=== PATIENT | female | born 1995 | race Caucasian/White ===

== ENCOUNTER → 2023-08-13 | Outpatient (CLI) | payer OTHER, SELFPAY ==
[2023-08-13 09:54] LABS: Hemoglobin A1c 5.1 % (3.8-5.6)
[2023-08-13 10:20] LABS: Estradiol 230.5 pg/mL; T4 Free Direct 0.96 ng/dL (0.76-1.46); Thyroid Stim Hormone (TSH) 2.07 uIU/mL (0.358-3.74)
== END | disposition home or self-care (01) ==
PROVIDERS: PCP Nurse Practitioner Family; Referring Provider Obstetrics & Gynecology; Visit Provider Obstetrics & Gynecology
DX: E78.1 Pure hyperglyceridemia (principal); R56.9 Unspecified convulsions; N91.2 Amenorrhea, unspecified
CPT/HCPCS: 36415; 82627; 82670; 83036; 84439; 84443; 82626

== ENCOUNTER → 2023-08-30 | Outpatient (CLI) | payer OTHER, SELFPAY ==
[2023-08-30 10:23] LABS: Cholesterol 281 mg/dL (200); High Density Lipoprotein 41 mg/dL; Triglycerides 544 mg/dL
== END | disposition home or self-care (01) ==
LOC: PAVLAB 09:46
PROVIDERS: PCP Nurse Practitioner Family; Referring Provider Obstetrics & Gynecology; Visit Provider Obstetrics & Gynecology
DX: E78.1 Pure hyperglyceridemia (principal); R56.9 Unspecified convulsions; N91.2 Amenorrhea, unspecified
CPT/HCPCS: 36415; 80061

== ENCOUNTER → 2023-09-22 | Outpatient (CLI) | payer OTHER, SELFPAY ==
[2023-09-22 15:46] LABS: Erythrocyte Sedimentation Rate 18 mm/hr (0-30)
[2023-09-22 15:58] LABS: Vitamin B12 423 pg/mL (211-911); Vitamin D,25 Hydroxy 28.6 ng/mL
[2023-09-22 16:09] LABS: CPK Total, Creatine Kinase 67 U/L (26-192); CRP 3.38 mg/L (0.0-3.0); Rheumatoid Factor < 10.0 IU/mL (<15)
[2023-09-26 13:07] LABS: Anti-Centromere B Ab <0.2 AI (0.0-0.9); Anti-Chromatin <0.2 AI (0.0-0.9); Anti-Jo <0.2 AI (0.0-0.9); Anti-Nuclear Antibody Test Negative (.); Anti-Scleroderma-70 AB <0.2 AI (0.0-0.9); Anti-dsDNA Ab 1 IU/mL (0-9); RNP Ab <0.2 AI (0.0-0.9); SJOGREN'S Anti-SS-A test < 0.2 AI (0.0-0.9); SJOGREN'S Anti-SS-B test < 0.2 AI (0.0-0.9); Smith Ab <0.2 AI (0.0-0.9)
[2023-09-27 15:07] LABS: CCP IgG Antibodies 6 units (0-19); Endomysial Antibody IgA Negative (Negative); Immunoglobulin A 214 mg/dL (87-352); Lamotrigine (Lamictal) Level < 1.0 ug/mL (2.0-20.0); t-Transglutaminase IgA <2 U/mL (0-3)
== END | disposition home or self-care (01) ==
LOC: BIMLAB 11:42
PROVIDERS: PCP Internal Medicine; Visit Provider Internal Medicine
DX: M25.50 Pain in unspecified joint (principal); R56.9 Unspecified convulsions; R10.9 Unspecified abdominal pain; G89.29 Other chronic pain; R20.0 Anesthesia of skin; R20.2 Paresthesia of skin
CPT/HCPCS: 36415; 82306; 82542; 82550; 82607; 82784; 83516; 85652; 86038; 86140; 86200; 86225; 86235; 86255; 86431

== ENCOUNTER → 2023-11-02 | Outpatient (CLI) | payer OTHER, SELFPAY ==
[2023-11-02 08:50] LABS: Absolute Lymphocyte Count 2.84 X10^3/uL (0.83-4.51); Absolute Neutrophil Count 2.7 X10^3/uL (2.0-7.7); Basophil# 0.08 X10^3/uL; Basophil% 1.3 % (0-1); Eosinophil# 0.16 X10^3/uL; Eosinophils% 2.5 % (0-5); Hematocrit 42.3 % (37-47); Hemoglobin 13.7 g/dL (12.0-15.0); Lymphocyte # 2.84 X10^3/ul (0.83-4.51); Lymphocyte % 44.4 % (19-41); Mean Corp Hgb Conc 32.4 g/dL (32-36); Mean Corpuscular Hgb 29.7 pg (27.0-32.0); Mean Corpuscular Volume 91.8 fL (81-99); Mean Platelet Vol. 8.5 fl (6.2-12.0); Monocyte# 0.58 X10^3/uL; Monocyte% 9.1 % (0-10); NRBC Flagged by Analyzer 0 % (0-5); Neutrophil # 2.72 X10^3/uL (2.7-7.7); Neutrophil % 42.5 % (47-70); Platelet Count 301 K/mm3 (150-450); RBC Distribution Width CV 12.5 % (11.6-14.6); RBC Distribution Width SD 41.8 fl (35.1-43.9); Red Blood Count 4.61 M/mm3 (4.2-5.4); White Blood Count 6.4 K/mm3 (4.4-11.0)
[2023-11-02 09:07] LABS: Internal QC Validated? YES +Cl - CLEAR BKGD; Pregnancy, Serum, hCG Quali. NEGATIVE Negative
[2023-11-02 09:08] LABS: Record Kit Lot#, Serum Preg. 735774
[2023-11-02 09:09] LABS: Anion Gap 4 (5-15); BUN 11 mg/dL (7-18); BUN/Creat Ratio 13.4 RATIO (10-20); Calcium,Total 8.9 mg/dL (8.5-10.1); Chloride 113 mmol/L (98-107); Creatinine, Serum 0.82 mg/dL (0.55-1.02); EST Glomerular Filtration Rate 89 mL/min (>60); Est Glom Filt Rate - Afr Amer 107 mL/min (>60); Glucose 114 mg/dL (74-106); Potassium 4.4 mmol/L (3.5-5.1); Sodium Level 138 mmol/L (136-145)
--- NOTE | 2023-11-02 13:26 | PCM.TILTTABL ---
Staff Staff: Aletha Smyth and Bertha Lloyd Summary Pre Test Resting HR: 82 Pre Test Resting BP: 112/90 Minimum Test HR: 77 Maximum Test HR: 90 Minimum Test BP: 105/92 Maximum Test BP: 135/95 Reason for Test Termination: Reached Maximum Test Time Physician Tilt Table Report Patient's Physicians Primary Care Physician: Mackenzie Canales Indications/Diagnosis: Dizziness Procedure Comments: Patient was brought to the noninvasive lab in the postabsorptive nonsedated state. Informed consent was obtained. Continuous EKG monitoring as well as blood pressure monitoring parameters were obtained. Initial EKG demonstrated sinus rhythm with a rate of 82 bpm. Blood pressure 131/79 mmHg. The patient was then positioned in the 70 degree head upright tilt position for 30 minutes. Continuous EKG monitoring as well as blood pressure and heart rate were obtained. Continuous monitoring were obtained. There were no significant changes in blood pressure or heart rate noted. Patient did note some symptoms of headache but no other significant symptomatology was noted. No nitroglycerin was given. Summary: Negative head upright tilt table test with no significant hemodynamic alterations.
[2023-11-02 13:29] VITALS: BP 105/92; BP 112/90; BP 135/95
== END | disposition home or self-care (01) ==
LOC: CVS 08:34
PROVIDERS: PCP Internal Medicine; Referring Provider Internal Medicine; Visit Provider Internal Medicine
DX: R42 Dizziness and giddiness (principal)
CPT/HCPCS: 36415; 80048; 84703; 85025; 93660; J7040; A4216

== ENCOUNTER 2023-11-17 08:02 | Emergency (ER) | payer OTHER, SELFPAY ==
[2023-11-17 08:03] VITALS: BP 151/116; PULSE 82; RESP 18; TEMP 36.4; O2SAT 98; BMI 42.3
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
[2023-11-17 08:41] LABS: Absolute Lymphocyte Count 2.51 X10^3/uL (0.83-4.51); Absolute Neutrophil Count 3.7 X10^3/uL (2.0-7.7); Basophil# 0.06 X10^3/uL; Basophil% 0.8 % (0-1); Eosinophil# 0.21 X10^3/uL; Hematocrit 42.9 % (37-47); Hemoglobin 13.7 g/dL (12.0-15.0); Lymphocyte # 2.51 X10^3/ul (0.83-4.51); Lymphocyte % 35.6 % (19-41); Mean Corp Hgb Conc 31.9 g/dL (32-36); Mean Corpuscular Hgb 29.5 pg (27.0-32.0); Mean Corpuscular Volume 92.3 fL (81-99); Mean Platelet Vol. 8.7 fl (6.2-12.0); Monocyte# 0.52 X10^3/uL; Monocyte% 7.4 % (0-10); NRBC Flagged by Analyzer 0 % (0-5); Neutrophil % 52.4 % (47-70); Platelet Count 237 K/mm3 (150-450); RBC Distribution Width CV 13.2 % (11.6-14.6); RBC Distribution Width SD 43.7 fl (35.1-43.9); Red Blood Count 4.65 M/mm3 (4.2-5.4); White Blood Count 7.1 K/mm3 (4.4-11.0)
[2023-11-17 08:52] LABS: Internal QC Validated? YES +Cl - CLEAR BKGD; Pregnancy, Serum, hCG Quali. NEGATIVE Negative
[2023-11-17 08:53] LABS: Alcohol, Blood (Medical)-Serum < 3.0 mg/dL
[2023-11-17 08:54] LABS: Anion Gap 5 (5-15); BUN 12 mg/dL (7-18); BUN/Creat Ratio 15.8 RATIO (10-20); Chloride 112 mmol/L (98-107); Creatinine, Serum 0.76 mg/dL (0.55-1.02); EST Glomerular Filtration Rate 97 mL/min (>60); Est Glom Filt Rate - Afr Amer 117 mL/min (>60); Estimated Creatinine Clearance 150.99 ml/min; Glucose 100 mg/dL (74-106); Potassium 3.8 mmol/L (3.5-5.1); Sodium Level 137 mmol/L (136-145)
--- NOTE | 2023-11-17 09:00 | NURSING ---
FAXING CHART TO [facility]
[2023-11-17 09:02] VITALS: BP 150/84; PULSE 80; RESP 14; O2SAT 99
[2023-11-17 09:08] VITALS: BP 150/84; PULSE 80; RESP 14; O2SAT 99
--- NOTE | 2023-11-17 09:10 | ED.RN ---
PT MEDICALLY CLEARED. [facility] AWARE.
[2023-11-17 09:37] LABS: Amphetamine Urine VISTA NEGATIVE (<1000 ng/mL); Barbiturate Urine VISTA NEGATIVE (< 200 ng/mL); Benzodiazepine Urine VISTA NEGATIVE (< 200 ng/mL); Cocaine Urine VISTA NEGATIVE (< 300 ng/mL); Ecstacy Urine VISTA NEGATIVE (< 500 ng/mL); Methadone Urine VISTA NEGATIVE (< 300 ng/mL); PCP Urine VISTA NEGATIVE (< 25 ng/mL); THC Urine VISTA NEGATIVE (< 50 ng/mL); Vista UDS pH Range 4
--- NOTE | 2023-11-17 09:48 | NURSING ---
FAXED LAST LAB TO [facility]
--- NOTE | 2023-11-17 10:15 | NURSING ---
[facility], HERE
[2023-11-17] MEDS: Topiramate 200 MG Tablet PO (10:25)
[2023-11-17] MEDS: lamoTRIgine 100 MG Tablet 50 MG PO (10:25)
[2023-11-17] MEDS: Fluoxetine HCl 40 MG CAPSULE PO (10:25)
[2023-11-17] MEDS: Pantoprazole Sodium 20 MG Tablet PO (10:26)
--- NOTE | 2023-11-17 16:57 | NURSING ---
[facility] [address] [facility]
[2023-11-17 17:08] VITALS: BP 116/77; PULSE 85; RESP 16; O2SAT 98
--- NOTE | 2023-11-17 17:15 | NURSING ---
CALLED [facility], ETA IS 4 TO 5 HOURS
--- NOTE | 2023-11-17 17:26 | ED.RN ---
report called to [facility] [place]
[2023-11-17] MEDS: Ibuprofen 200 MG Tablet 400 MG PO (19:39)
[2023-11-17 20:41] VITALS: BP 118/74; PULSE 74; RESP 18; TEMP 36.2; O2SAT 99
== END 2023-11-17 20:50 ==
PROVIDERS: Emergency Provider Emergency Medicine; PCP Internal Medicine; Visit Provider Emergency Medicine
DX: R45.851 Suicidal ideations (principal); F17.290 Nicotine dependence, other tobacco product, uncomplicated; F32.A Depression, unspecified
CPT/HCPCS: 36415; 80048; 80307; 80320; 84703; 85025; 99285; G0480